=== PATIENT | female | born 1960 | race Caucasian/White ===

== ENCOUNTER 2018-05-01 10:45 | Emergency (ER) | payer BC ==
[2018-05-01 11:29] VITALS: BP 152/96
--- NOTE | 2018-05-01 12:24 | UC ---
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 Three days ago she had a deep tissue massage and had work done on shoulder but felt worse after it and now cannot move arm in any direction. States pain is sore and also burning. Years ago took neurontin but states she stopped due to no effects. She is on pain management due to OA and s/p left TKR. She currently is on morphine and norco. Denies radiation of pain to elbow or hand. - History of Current Complaint Chief Complaint: UCUpperExtremity Stated Complaint: LEFT SHOULDER PAIN Time Seen by Provider: 05/01/18 11:55 Hx Obtained From: Patient Hx Last Menstrual Period: May, ?: No Onset/Duration: Sudden Onset, Lasting Days Timing: Constant Severity Initially: Moderate Severity Currently: Severe Location Of Pain: Is Discrete @ - left Pain Intensity: 9 Character: Dull, Aching, Burning Aggravating Factor(s): Movement Alleviating Factor(s): Nothing Associated Signs And Symptoms: Positive: Negative - Risk Factors DVT Risk Factors: Negative - Allergies/Home Medications Allergies/Adverse Reactions: Allergies Allergy/AdvReac Type Severity Reaction Status Date / Time ketorolac [From Toradol] Allergy GI Upset Verified 05/01/18 11:25 NSAIDS (Non-Steroidal Allergy GI Upset Verified 05/01/18 11:25 Anti-Inflamma prochlorperazine AdvReac Dizziness Verified 03/10/18 10:31 PMH/Surg Hx/FS Hx/Imm Hx Cardiovascular History: Hypertension GI/ History: Gastroesophageal Reflux Neurological History: Migraine Psychological History: Depression - Surgical History Surgical History: Yes Surgery Procedure, Year, and Place: C SECTION, REATTACHMENT LT RING FINGER, GALLBLADDER, LT BREAST BIOPSY(BENIGN)11/19/15: Major dental surgery. 03/08/17 - left knee replacement - Family History Known Family History: Positive: None - Social History Alcohol Use: None Substance Use Type: None Substance Use Comment - Amount & Last Used: [place] Smoking Status (MU): Former Smoker Type: Cigarettes Amount Used/How Often: social smoker Length of Time of Smoking/Using Tobacco: 3 years quit 7 years ago Have You Smoked in the Last Year: No When Did the Patient Quit Smoking/Using Tobacco: 7 years ago Household Exposure Type: Cigarettes - Immunization History Most Recent Influenza Vaccination: 2014 Review of Systems Constitutional: Negative Musculoskeletal: Arthralgia, Myalgia All Other Systems Reviewed And Are Negative: Yes Physical Exam Triage Information Reviewed: Yes Appearance: Well-Appearing, Pain Distress, Obese Vital Signs: Initial Vital Signs Temp 99 F 05/01/18 11:22 Pulse 70 05/01/18 11:22 Resp 14 05/01/18 11:22 BP 152/96 05/01/18 11:22 Pulse Ox 98 05/01/18 11:22 Vital Signs Reviewed: Yes Eyes: Positive: Conjunctiva Clear ENT: Positive: Hearing grossly normal, Pharynx normal Neck exam: Normal Neck: Positive: Supple, Nontender, No Lymphadenopathy Respiratory: Positive: Chest non-tender, Lungs clear, Normal breath sounds, No respiratory distress Cardiovascular: Positive: RRR, No Murmur, Pulses Normal, Brisk Capillary Refill Abdomen Description: Positive: Nontender Musculoskeletal: Positive: No Edema, Other: - inability to move left shoulder in any direction due to pain, left elbow FROM, left hand FROM, distal pulses normal Skin Exam: Other - bruising surrounding shoulders, (b/l deltoid area, left axilla) Shoulder Course/Dx - Differential Dx/Diagnosis Provider Diagnoses: left shoulder pain Discharge - Sign-Out/Discharge Documenting (check all that apply): Discharge/Admit/Transfer - Discharge Plan Condition: Stable Disposition: HOME Prescriptions: Gabapentin 300 mg PO BEDTIME #30 solution tiZANidine TAB* [Zanaflex TAB*] 2 mg PO TID PRN 10 Days #30 tab PRN Reason: Pain Referrals: Dom Munson MD [Primary Care Provider] - - Billing Disposition and Condition Condition: STABLE Disposition: Home
--- NOTE | 2018-05-01 13:48 | RAD ---
INDICATION: Left shoulder pain after "pulled herself up into van" COMPARISON: None. TECHNIQUE: 3 views of the left shoulder were obtained. FINDINGS: Overlying the superior lateral left humeral head is several foci of well-corticated calcium, the largest measuring 7 mm in greatest dimension. Degenerative changes at the acromioclavicular joint include mild marginal osteophyte formation. The visualized bones are otherwise intact and appropriately aligned. IMPRESSION: RADIOGRAPHIC FINDINGS COULD BE COMPATIBLE WITH CALCIFIC TENDINITIS INVOLVING THE SUPRASPINATUS TENDON IN THIS OTHERWISE NONACUTE LEFT SHOULDER RADIOGRAPH. If the patient's symptoms persist, follow-up imaging is recommended.
== END 2018-05-01 14:14 | disposition home or self-care (01) ==
LOC: UCCORT 10:45
DX: M25.512 Pain in left shoulder (principal); M17.12 Unilateral primary osteoarthritis, left knee; I10 Essential (primary) hypertension; K21.9 Gastro-esophageal reflux disease without esophagitis; E66.9 Obesity, unspecified; G43.909 Migraine, unspecified, not intractable, without status migrainosus; F32.9 Major depressive disorder, single episode, unspecified; Z87.891 Personal history of nicotine dependence; Z96.612 Presence of left artificial shoulder joint
CPT/HCPCS: 99213; G0463